=== PATIENT | male | born 1995 | race Caucasian/White ===

== ENCOUNTER 2018-06-27 13:03 | Inpatient (IN) | payer OTHER ==
[~2018-06-27] VITALS: Ht 175.3 cm; Wt 74.4 kg
--- NOTE | 2018-06-27 14:20 | NUR ---
PT AMBULATORY TO ER BED 12 C/O DIZZINESS, N/V/D X 4 DAYS S/P HEAD INJURY 4 DAYS AGO. GOWNED AND PLACED ON [place]ONT[place]. AWAITING MD TOMLINSON.
--- NOTE | 2018-06-27 15:12 | NUR ---
DR ORONA AT BEDSIDE FOR EVAL.
--- NOTE | 2018-06-27 15:18 | NUR ---
IV LINE STARTED BLOOD DRAWN AND SENT TO LAB.
[2018-06-27 15:27] LABS: BASOPHILS # (AUTO) 0.1 /CMM (0.0-0.2); BASOPHILS % (AUTO) 0.7 % (0.0-2.0); EOSINOPHILS % (AUTO) 2.1 % (0.0-6.0); HEMATOCRIT 42 % (39-51); HEMOGLOBIN 14.8 g/dL (13.5-17.5); LYMPHOCYTES # (AUTO) 1.8 /CMM (0.8-4.8); LYMPHOCYTES % (AUTO) 21.6 % (20.0-44.0); MEAN CORPUSCULAR HGB CONC 35 g/dl (31.0-36.0); MEAN CORPUSCULAR VOLUME 89 fL (80-96); MONOCYTES # (AUTO) 1.1 /CMM (0.1-1.30); MONOCYTES % (AUTO) 14.1 % (2.0-12.0); NEUTROPHILS % (AUTO) 61.5 % (43.0-81.0); PLATELET COUNT (AUTO) 199 /CMM (150-450); RED BLOOD CELL COUNT(AUTO) 4.75 MIL/uL (4.5-6.0); WHITE BLOOD COUNT (AUTO) 8.2 K/uL (4.3-11.0)
[2018-06-27] MEDS ORDERED: ONDANSETRON HCL/PF 4 MG/2 ML VIAL ONE (15:27)
[2018-06-27] MEDS ORDERED: LOPERAMIDE HCL (2 MG CAP) 2 MG CAPSULE PO ONE ×2 (15:27→15:30)
[2018-06-27] MEDS ORDERED: IV NS 0.9% 1,000 ML BAG IV ONE (15:30)
[2018-06-27] MEDS ORDERED: ONDANSETRON HCL/PF 4 MG/2 ML VIAL IVP ONE (15:30)
[2018-06-27 15:40] LABS: CALCIUM, SERUM 8.5 mg/dL (8.5-10.1); POTASSIUM 4.3 mmol/L (3.5-5.1)
[2018-06-27 15:48] LABS: ALBUMIN 3.7 g/dL (3.4-5.0); BILIRUBIN,DIRECT 0.1 mg/dL (0.0-0.2); BILIRUBIN,TOTAL 0.5 mg/dL (0.2-1.0); TOTAL PROTEIN, SERUM 6.8 g/dL (6.4-8.2)
[2018-06-27 15:51] LABS: CREATININE 9.6 mg/dL (0.6-1.3)
--- NOTE | 2018-06-27 18:11 | NUR ---
REPORT GIVEN TO SHERIE TERRAZAS. PT AWAITING TRANSFER TO FLOOR.
--- NOTE | 2018-06-27 19:13 | NUR ---
ADMIT 323-1 DX ACUTE RENAL FAILURE
--- NOTE | 2018-06-27 19:14 | NUR ---
REPORT GIVEN TO RUIZ TERRAZAS FOR JAI.
--- NOTE | 2018-06-27 19:21 | NUR ---
RECIEVED REPORT FROM NETTA . PT APPEARS COMFORTABLE. VSS
[2018-06-27] MEDS ORDERED: ACETAMINOPHEN 325 MG TABLET PO PRN (19:30)
[2018-06-27] MEDS ORDERED: MAGNESIUM HYDROXIDE 30 ML UDC PO PRN (19:30)
[2018-06-27] MEDS ORDERED: HYDROCODONE/APAP 5/325MG 1 EACH TABLET PO PRN (19:30)
[2018-06-27] MEDS ORDERED: ZOLPIDEM TARTRATE 5 MG TABLET PO PRN (19:30)
[2018-06-27] MEDS ORDERED: LOPERAMIDE HCL (2 MG CAP) 2 MG CAPSULE PO PRN (19:30)
[2018-06-27] MEDS ORDERED: MAG HYDROX/AL HYDROX/SIMETH 30 ML UDC PO PRN (19:30)
--- NOTE | 2018-06-27 19:30 | NUR ---
REPORT GIVEN TO NINI TRAVIS FOR [facility] BED 323/ JAI
--- NOTE | 2018-06-27 19:41 | NUR ---
PT TRANSFERRED TO [facility] BED 323 VIA W/C. PT IN STABLE CONDITION.
[2018-06-27 20:00] VITALS: BP 149/76
--- NOTE | 2018-06-27 20:00 | NUR ---
MS ORDER ENTRY TECHNICIAN NOTE: PT ADMITTED FROM ER VIA WHEELCHAIR. PT IS ALERT AND ORIENTED X4, PT IS AMBULATORY. NO ACUTE DISTRESS NOTED. NO COMPLAINTS OF PAIN OR DISCOMFORT AT THIS TIME. ON ROOM AIR, SATURATING WELL. BREATHING EVEN AND UNLABORED WITH NORMAL RESPIRATIONS. IV ON RIGHT ANTECUBITAL #22 INTACT AND PATENT, FLUSHING WELL. NO SIGN/SYMPTOMS OF INFILTRATION NOTED. PERTINENT ASSESSMENT DONE. SKIN IS INTACT. VITAL SIGNS STABLE. CALL LIGHT PLACED WITHIN REACH. KEPT CLEAN, DRY AND COMFORTABLE. SAFETY AND FALL PRECAUTIONS OBSERVED AND MAINTAINED. WILL CONTINUE TO MONITOR PT.
[2018-06-27] MEDS: IV NS 0.9% 1,000 ML IV PRN (20:03)
[2018-06-27 20:10] VITALS: BP 149/76
[2018-06-27] MEDS: ONDANSETRON HCL/PF 4 MG/2 ML VIAL IVP PRN (20:45)
--- NOTE | 2018-06-28 00:06 | NUR ---
MS RN NOTE: PT HAD 1X EPISODE OF NAUSEA AND VOMITING. GREG DESHPANDE MADE AWARE AND ORDERED REGLAN 10MG Q6HRS IV PRN. WILL CONTINUE TO MONITOR PT.
[2018-06-28] MEDS ORDERED: METOCLOPRAMIDE HCL 10 MG/2 ML VIAL IV PRN (00:30)
--- NOTE | 2018-06-28 06:47 | NUR ---
MS RN NOTE: PT IN BED ASLEEP. NO ACUTE DISTRESS NOTED. PT VERBALIZED RELIEF FROM PRN MEDICATION THAT WAS GIVEN LAST NIGHT. DENIES PAIN AND DISCOMFORT AT THIS TIME. ON ROOM AIR, SATURATING WELL. CALL LIGHT PLACED WITHIN REACH. KEPT CLEAN, DRY AND COMFORTABLE. ENCOURAGED TO VERBALIZE NEEDS AND CONCERNS AND TO CALL FOR ASSISTANCE IF NEEDED. WILL ENDORSE TO DAY SHIFT RN FOR CONTINUITY OF CARE.
[2018-06-28 06:55] LABS: APPEARANCE,URINE CLEAR (CLEAR); BILIRUBIN,URINE NEGATIVE (NEGATIVE); BLOOD, URINE TRACE-INTA Ery/uL (NEGATIVE); COLOR,URINE YELLOW (YELLOW); KETONES,URINE NEGATIVE (NEGATIVE); LEUKOCYTE ESTERASE ,URINE NEGATIVE (NEGATIVE); NITRITE, URINE NEGATIVE (NEGATIVE); PH,URINE 6.5 (5.0-8.0); PROTEIN,URINE NEGATIVE (NEGATIVE); UGLUCOSE NEGATIVE (NEGATIVE); UROBILINOGEN,URINE 0.2 EU/dL (0.2)
[2018-06-28 07:13] LABS: BACTERIA,URINE Rare /HPF (None Seen); RBC,URINE NONE SEEN /HPF (0-2); SQUAMOUS EPITHELIAL CELL,UR Rare /HPF (None Seen); WBC,URINE 0-2 /HPF (0-3)
[2018-06-28 07:40] LABS: ALBUMIN 3.4 g/dL (3.4-5.0); BASOPHILS % (AUTO) 0.4 % (0.0-2.0); BILIRUBIN,TOTAL 0.8 mg/dL (0.2-1.0); CALCIUM, SERUM 8.4 mg/dL (8.5-10.1); CREATININE 8.5 mg/dL (0.6-1.3); EOSINOPHILS % (AUTO) 2.9 % (0.0-6.0); HEMATOCRIT 44 % (39-51); HEMOGLOBIN 15.1 g/dL (13.5-17.5); LYMPHOCYTES % (AUTO) 23.8 % (20.0-44.0); MAGNESIUM 2.2 mg/dL (1.8-2.4); MEAN CORPUSCULAR HGB CONC 35 g/dl (31.0-36.0); MEAN CORPUSCULAR VOLUME 89 fL (80-96); MONOCYTES # (AUTO) 1.1 /CMM (0.1-1.30); MONOCYTES % (AUTO) 13.4 % (2.0-12.0); NEUTROPHILS # (AUTO) 5.1 /CMM (1.8-8.9); NEUTROPHILS % (AUTO) 59.5 % (43.0-81.0); PHOSPHORUS 5.6 mg/dL (2.5-4.9); PLATELET COUNT (AUTO) 187 /CMM (150-450); POTASSIUM 4.2 mmol/L (3.5-5.1); RED BLOOD CELL COUNT(AUTO) 4.86 MIL/uL (4.5-6.0); TOTAL PROTEIN, SERUM 6.5 g/dL (6.4-8.2); WHITE BLOOD COUNT (AUTO) 8.5 K/uL (4.3-11.0)
[2018-06-28 08:00] VITALS: BP 144/82
[2018-06-28] MEDS: ONDANSETRON HCL/PF 4 MG/2 ML VIAL IVP PRN ×2 (08:29→17:46)
[2018-06-28] MEDS: PANTOPRAZOLE 40 MG TABLET.DR PO SCH (08:29)
--- NOTE | 2018-06-28 08:30 | NUR ---
MEDICATED FOR NAUSEA WITH ZOFRAN IV.
--- NOTE | 2018-06-28 10:31 | NUR ---
Social service consult requested by GREG Bagley for possible homelessness. Pt. is a 23 year old male who was admitted to [facility] for acute renal failure. NEHEMIAS met with pt. bedside. Pt. is alert and oriented x 4. Pt. was cooperative during the assessment. Pt. states he resides at a sober living located at [address] [place] [address] [place] [address]. Pt. has been residing there for the past 2 months. Pt's emergency contact is his mother Alexa Mi . Pt. denies any alcohol use and states he smokes marijuana daily. Pt. denies any other drug use. Pt. states he has a diagnosis of Depression and Anxiety and was taking medication but stopped because he states, " I got addicted to it." SW encouraged pt. to see a psychiatrist regarding him abruptly stopping his medications. Pt. denies suicidal and homicidal ideations and visual/auditory hallucinations at this time. No other social service needs are requested at this time. SW is available, if needed. NEHEMIAS updated pt's RN SHWETHA Luz and clinical case manager Emily Chisholm regarding pt's discharge plan.
--- NOTE | 2018-06-28 12:00 | NUR ---
DR. Va SALCEDO IN TO SEE PT. ORDERS GIVEN,UA SENT.
[2018-06-28] MEDS: IV NS 0.9% 1,000 ML IV PRN ×2 (13:26→23:17)
[2018-06-28 13:57] LABS: APPEARANCE,URINE CLEAR (CLEAR); BILIRUBIN,URINE NEGATIVE (NEGATIVE); BLOOD, URINE NEGATIVE Ery/uL (NEGATIVE); COLOR,URINE YELLOW (YELLOW); KETONES,URINE NEGATIVE (NEGATIVE); LEUKOCYTE ESTERASE ,URINE NEGATIVE (NEGATIVE); NITRITE, URINE NEGATIVE (NEGATIVE); PROTEIN,URINE NEGATIVE (NEGATIVE); UGLUCOSE NEGATIVE (NEGATIVE); UROBILINOGEN,URINE 0.2 EU/dL (0.2)
[2018-06-28 14:05] LABS: CREATININE, URINE 41.4 MG/DL (30.0-125.0); URINE TOTAL PROTEIN 3.2 mg/dL (0-11.9)
[2018-06-28 15:05] LABS: EOSINOPHIL,URINE Rare
[2018-06-28 16:00] VITALS: BP 153/86
--- NOTE | 2018-06-28 18:00 | NUR ---
MED. AGAIN FOR NAUSEA.
[2018-06-28 20:00] VITALS: BP_SYST 148; BP_SYST 86; BP_DIAS 86
--- NOTE | 2018-06-28 22:00 | NUR ---
RN NOTES RECEIVED PT. FROM ANOTHER NURSE, YVES AMBULATORY, FRISIAN SPEAKING, SON AT BEDSIDE, DENIES PAIN, NO SOB, CALL LIGHT WITHIN REACH, [id number], CONTINUE TO MONITOR Addendum: 06/28/18 at 2339 by TONY ZAMORA RN WRONG PATIENT
--- NOTE | 2018-06-28 23:00 | NUR ---
RN NOTES PT. IV LINE IS LEAKING , 2 NURSE TRIED IT BUT MISSED IT BECAUSE PT. IS HARD STICK.. THEN PT WENT TO THE NURSES STATION AND WAS TELLING THAT HE PREFER A WHITE NURSE.. ER NURSE CAME AND INSERTED A NEW IV LINE
--- NOTE | 2018-06-29 06:47 | NUR ---
RN NOTES AWAKE, DENIES PAIN, NO SOB, CALL LIGHT WITHIN REACH, [id number], PT. NEEDS ATTENDED
[2018-06-29] MEDS: PANTOPRAZOLE 40 MG TABLET.DR PO SCH (07:30)
[2018-06-29 07:35] LABS: BASOPHILS # (AUTO) 0.1 /CMM (0.0-0.2); BASOPHILS % (AUTO) 0.7 % (0.0-2.0); EOSINOPHILS % (AUTO) 3.9 % (0.0-6.0); HEMATOCRIT 46 % (39-51); HEMOGLOBIN 15.8 g/dL (13.5-17.5); LYMPHOCYTES # (AUTO) 2.3 /CMM (0.8-4.8); LYMPHOCYTES % (AUTO) 27.2 % (20.0-44.0); MEAN CORPUSCULAR HGB CONC 35 g/dl (31.0-36.0); MEAN CORPUSCULAR VOLUME 89 fL (80-96); MONOCYTES % (AUTO) 11.2 % (2.0-12.0); NEUTROPHILS # (AUTO) 4.9 /CMM (1.8-8.9); PLATELET COUNT (AUTO) 216 /CMM (150-450); RED BLOOD CELL COUNT(AUTO) 5.12 MIL/uL (4.5-6.0); WHITE BLOOD COUNT (AUTO) 8.6 K/uL (4.3-11.0)
[2018-06-29 08:00] VITALS: BP_SYST 134; BP_SYST 152; BP_DIAS 82
[2018-06-29 08:01] LABS: ALBUMIN 3.6 g/dL (3.4-5.0); BILIRUBIN,TOTAL 0.7 mg/dL (0.2-1.0); CALCIUM, SERUM 8.5 mg/dL (8.5-10.1); CREATININE 5.7 mg/dL (0.6-1.3); MAGNESIUM 1.7 mg/dL (1.8-2.4); PHOSPHORUS 4.3 mg/dL (2.5-4.9); POTASSIUM 4.3 mmol/L (3.5-5.1)
--- NOTE | 2018-06-29 14:09 | NUR ---
RN NOTES INFORMED DOCTOR OD MAGNISUM LEVEL OF 1.7
--- NOTE | 2018-06-29 14:09 | NUR ---
RN NOTES AWAKE, DENIES PAIN, NO SOB, CALL LIGHT WITHIN REACH, [id number], PT. NEEDS ATTENDED WILL CONTINUE TO TREAT AND MONITOR.
[2018-06-29 16:00] VITALS: BP 138/79
[2018-06-29] MEDS: ONDANSETRON HCL/PF 4 MG/2 ML VIAL IVP PRN (18:22)
[2018-06-29 20:00] VITALS: BP 155/88
--- NOTE | 2018-06-29 20:00 | NUR ---
RN NOTES RECEIVED PT. AWAKE ON BED, A/OX4, AMBULATORY DENIES PAIN, NO SOB, CALL LIGHT WITHIN REACH, [id number], CONTINUE TO MONITOR
[2018-06-29] MEDS: IV NS 0.9% 1,000 ML IV PRN (20:16)
--- NOTE | 2018-06-29 22:06 | NUR ---
RN NOTES COMPLAINED OF CONSTIPATION,, MOM 30ML PO GIVEN ORDERED
--- NOTE | 2018-06-30 06:47 | NUR ---
RN NOTES AWAKE, DENIES PAIN, NO SOB, MORNING CARE RENDERED, PT. NEEDS ATTENDED
[2018-06-30 06:58] LABS: BASOPHILS # (AUTO) 0.1 /CMM (0.0-0.2); BASOPHILS % (AUTO) 0.8 % (0.0-2.0); EOSINOPHILS % (AUTO) 3.9 % (0.0-6.0); HEMATOCRIT 51 % (39-51); HEMOGLOBIN 17.4 g/dL (13.5-17.5); LYMPHOCYTES # (AUTO) 2.1 /CMM (0.8-4.8); LYMPHOCYTES % (AUTO) 22.2 % (20.0-44.0); MEAN CORPUSCULAR HGB CONC 34 g/dl (31.0-36.0); MEAN CORPUSCULAR VOLUME 90 fL (80-96); NEUTROPHILS % (AUTO) 63.1 % (43.0-81.0); PLATELET COUNT (AUTO) 225 /CMM (150-450); RED BLOOD CELL COUNT(AUTO) 5.64 MIL/uL (4.5-6.0); WHITE BLOOD COUNT (AUTO) 9.5 K/uL (4.3-11.0)
[2018-06-30 07:05] LABS: CALCIUM, SERUM 9.5 mg/dL (8.5-10.1); CREATININE 3.2 mg/dL (0.6-1.3); MAGNESIUM 1.8 mg/dL (1.8-2.4); PHOSPHORUS 3.8 mg/dL (2.5-4.9); POTASSIUM 4.3 mmol/L (3.5-5.1)
--- NOTE | 2018-06-30 07:47 | NUR ---
RN OPENING NOTES RECEIVED PT. PT STABLE AND RESTING IN BED. NO S/S OF RESP DISTRESS/SOB. NO C/O PAIN. A/OX4. IV ACCESS LOCATED ON LAC INFUSING NS AT 75CC/HR. PER [facility] REPORT PT TAKING PO FLUIDS WELL, REPORTS NO OCCURRENCES OF N/V THROUGHOUT NIGHT. SAFETY MEASURES IN PLACE, CALL LIGHT WITHIN REACH. WILL CONTINUE TO MONITOR.
[2018-06-30 08:00] VITALS: BP 163/79
[2018-06-30 08:11] VITALS: BP 136/76
[2018-06-30] MEDS: PANTOPRAZOLE 40 MG TABLET.DR PO SCH (08:16)
[2018-06-30] MEDS: ONDANSETRON HCL/PF 4 MG/2 ML VIAL IVP PRN (09:06)
[2018-06-30 11:13] LABS: PTH, INTACT 71 pg/mL (15-65)
[2018-06-30 12:12] LABS: *SPE A/G RATIO 1.3 (0.7-1.7); *SPE ALBUMIN 3.6 g/dL (2.9-4.4); *SPE ALPHA-1-GLOBULIN 0.2 g/dL (0.0-0.4); *SPE ALPHA-2-GLOBULIN 0.8 g/dL (0.4-1.0); *SPE GLOBULIN, TOTAL 2.8 g/dL (2.2-3.9); *SPE M-SPIKE Not Observed g/dL (Not Observed); *SPEGAMMA GLOBULIN 0.7 g/dL (0.4-1.8)
[2018-06-30 16:09] VITALS: BP 125/78
--- NOTE | 2018-06-30 18:05 | NUR ---
DISCHARGE NOTE PT DISCHARGED HOME, [facility]. DISCHARGE TEACHING PERFORMED. PT VERBALIZED UNDERSTANDING OF EDUCATION. DC INSTRUCTIONS AND BELONGINGS SHEET SIGNED, COPIED AND PLACED IN CHART. BELONGINGS FROM SAFE RETRIEVED AND GIVEN BACK TO PT. IV ACCESS AND ID BAND REMOVED. PT LEFT HOSPITAL IN PRIVATE VEHICLE WITH DUAL RATE DEALER.
== END 2018-06-30 18:20 | disposition home or self-care (01) | DRG 684 ==
LOC: ER 13:07 → MED 19:19
PROVIDERS: ADMIT Nurse Practitioner Acute Care; ATTEND Nurse Practitioner Acute Care
DX: N17.0 Acute kidney failure with tubular necrosis (principal); E86.0 Dehydration; E83.42 Hypomagnesemia; E86.1 Hypovolemia; R51 Headache; F12.288 Cannabis dependence with other cannabis-induced disorder; R11.2 Nausea with vomiting, unspecified
CPT/HCPCS: 36415; 80048-TC; 80053-TC; 80061-TC; 80076-TC; 81000-TC; 82550-TC; 82570-TC; 83690-TC; 83735-TC; 83970; 84100-TC; 84155; 84155-TC; 84165; 84300-TC; 85025-TC; 87081-TC; A4606; G0378; J2405; J2765; J7030; Z7610